=== PATIENT | male | born 1990 | race Caucasian/White ===

== ENCOUNTER 2023-09-27 17:02 | Emergency (ER) | payer OTHER, SELFPAY ==
[2023-09-27 17:04] VITALS: BP 164/124; PULSE 88; RESP 20; TEMP 36.7; O2SAT 97; BMI 25.7
--- NOTE | 2023-09-27 17:13 | INFXCTL.NOTE ---
DR CALDERON AT BEDSIDE
[2023-09-27] MEDS: FLUORESCEIN SODIUM 1MG STRIP 1 MG OP (17:25)
[2023-09-27] MEDS: ERYTHROMYCIN BASE 1 GM OINT...G. OP (17:25)
--- NOTE | 2023-09-27 17:25 | ED_ITS ---
Discharge Plan Disposition Patient Disposition: Home, Self-Care Condition: Good Prescriptions Prescriptions: New erythromycin 5 mg/gram (0.5 %) ointment 1.25 cm Eye-Right Q8H Qty: 3.5 0RF Referrals Follow up/Referrals: Provider,Referral, [Primary Care Provider] - See instructions Activity Restrictions/Add. Instructions Additional Instructions/Restrictions: Use your erythromycin ointment 4 times per day and use the polymyxin eyedrop every 4 hours during the first 24 hours, every 6 hours after the first 24 hours. Follow-up closely with ophthalmology for continued evaluation and management and return for any new or worsening symptoms including but not limited to worsening pain, swelling, changes in your vision or any other concerns arise. Clinical Impressions Clinical Impression: Corneal abrasion Instructions Patient Instructions: DI for Eye Pain Discharge ED Provider: Mara Navarro Adult HPI General Chief complaint: Eye Problems Stated complaint: Stuck by bee eye Time Seen by Provider: 09/27/23 17:10 Mode of Arrival: Ambulatory Source of Information: Patient Limitations: No Limitations Description of Symptoms (Recalled from ER Triage Doc. by RN): r eye. possible bee sting History of Present Illness HPI narrative: Patient is a 33-year-old male with no significant past medical history presenting with right eye issue. Patient [place] and was driving with his windows down when a bug flew in the window and he swatted it away. He felt some pain in his right eye and saw a bee on the steering wheel and thinks he was stung in the eye. He feels a foreign body sensation in the eye but they did attempt to rinse it at roadside with water. Denies any visual changes. He was worried there was a stinger still in his eye. Denies any contacts. Related Data Previous Rx's Medication Instructions Recorded erythromycin 5 mg/gram (0.5 %) eye 1.25 cm Eye-Right Q8H #3.5 grams 09/27/23 ointment Allergies Allergy/AdvReac Type Severity Reaction Status Date / Time No Known Allergies Allergy Verified 09/27/23 17:14 [facility] Disclaimer: The information contained in this section may have been updated after the patient was seen, as this information can be updated by other users. Social History Smoking Status: Never smoker alcohol intake: current current occupational status: employed Travel in the last 8 weeks: None ROS Obtained: Yes Systems reviewed as appropriate & no additional complaints except as documented Physical Exam General General appearance: alert and in no apparent distress Head Head exam: atraumatic and normocephalic Eye Eye exam: Present PERRL, EOMI and other (Conjunctival injection and some chemosis of the right eye with no retained foreign body or corneal abrasion appreciated, some swelling around the right eye as well but able to range of motion in all directions, no ecchymosis or abrasion and no abrasion under fluorescein staining with Shannon lamp.) Respiratory Respiratory exam: Present normal lung sounds bilaterally; Absent respiratory distress Cardiovascular Cardiovascular exam: Present regular rate and normal rhythm Neurological Exam Neurological exam: Present alert and oriented X3 Medical Decision Making Medical Records Medical records reviewed: Yes I reviewed the patient's medical records. Rashid Inquiry Pt receiving controlled substance: No Vital Signs: 09/27/23 17:04 Temperature 98.1 F Temperature Source Oral Pulse Rate [Right] 88 Respiratory Rate 20 Blood Pressure [Right Arm] 164/124 H Blood Pressure Mean [Right Arm] 137 02 Sat by Pulse Oximetry 97 Oxygen Delivery Method Room Air Medical Decision Narrative: Patient is a 33-year-old male with no significant past medical history presenting with right eye problem. Bug flew into his eye while [address], subsequent pain and retained body sensation to the right eye with right eye swelling. He does have swelling surrounding the right eye as well as chemosis of the right eye and some conjunctival injection. There is no identifiable foreign body under direct exam as well as Shannon lamp exam after fluorescein staining. Patient did have resolution of his symptoms after tetracaine and and is able to range of motion his eye in all directions. No visual changes. Concerned that he did have an injury/sting around the right eye area but again no visible abrasion or retained foreign body. Given erythromycin ointment and polymyxin eyedrops while in the emergency department and recommended how he should take these medications, will also prescribe erythromycin ointment. Discussed that he should follow-up with ophthalmology tomorrow for continued management as well as return precautions to which patient is agreeable. Discharged in stable condition. Critical Care Critical Care Time Critical Care Time: No
[2023-09-27] MEDS: NEOMYCIN-POLYMY-GRAM OPHTH SOLN 10ML BOTTLE OP (17:26)
[2023-09-27] MEDS: TETRACAINE 0.5% OPTH SOL 15ML OP (17:26)
[2023-09-27 17:43] VITALS: BP 142/99; PULSE 90; RESP 20; TEMP 36.7; O2SAT 98
== END 2023-09-27 17:44 | disposition home or self-care (01) ==
PROVIDERS: Emergency Provider Emergency Medicine
DX: S05.01XA Injury of conjunctiva and corneal abrasion without foreign body, right eye, initial encounter (principal); H02.843 Edema of right eye, unspecified eyelid; W44.8XXA Other foreign body entering into or through a natural orifice, initial encounter
CPT/HCPCS: 99283

== ENCOUNTER 2024-07-30 08:36 | Outpatient (CLI) | payer OTHER, SELFPAY ==
[2024-07-30 09:17] LABS: Basophils % 0.6 % (0.1-2.0); Eosinophils % 0.4 % (0.1-12.0); Hematocrit 36.2 % (42.0-52.0); Hemoglobin 10.9 g/dL (14.1-18.0); Lymphocytes # 1.6 K/mm3 (0.7-4.5); Lymphocytes % 30.1 % (10-50); Mean Corpuscular HGB Conc 30.1 g/dL (31.8-35.4); Mean Corpuscular Hemoglobin 20.4 pg (27.0-31.2); Mean Corpuscular Volume 67.8 fl (80-94); Mean Platelet Volume 9.1 fl (7.4-10.4); Monocytes # 0.6 K/mm3 (0.1-1.0); Monocytes % 11.2 % (1.7-9.3); Neutrophils # 3.1 K/mm3 (1.8-7.8); Neutrophils % 57.5 % (37.0-80.0); Platelet Count 227 K/mm3 (142-424); Red Blood Count 5.34 M/mm3 (4.60-6.20); Red Cell Distribution Width 18.6 % (11.5-17.5); White Blood Count 5.5 K/mm3 (4.8-10.8)
[2024-07-30 09:35] LABS: Alanine Aminotransferase 35 U/L (12-78); Albumin Level 4.8 g/dl (3.5-5.0); Albumin/Globulin Ratio 1.7 (1.1-1.8); Alkaline Phosphatase 53 U/L (38-126); Anion Gap 12.5 mEq/L (5-15); Aspartate Amino Transferase 51 U/L (17-59); Bilirubin,Total 0.2 mg/dl (0.2-1.3); Blood Urea Nitrogen 12 mg/dl (9-20); Calcium 9.6 mg/dl (8.4-10.2); Carbon Dioxide 26 mmol/L (22.0-30.0); Chloride 106 mmol/L (98-107); Estimated Glomerular Filt Rate 97 ml/min (>60); GFR (African American) 117 ML/MIN (>60); Globulin 2.8 g/dL (1.3-3.2); Glucose 93 mg/dl (74-100); Potassium 4.5 mmoL/L (3.5-5.1); Sodium 140 mmol/L (136-145); Total Protein,Serum 7.6 g/dl (6.3-8.2)
[2024-07-31 09:24] LABS: Hep B Core Ab, Total Negative (Negative); Hep B Surface Ab, Qual Reactive (.); Hepatitis B Surface Antigen Negative (Negative)
[2024-08-03 02:36] LABS: ALT (SGPT) P5P 34 IU/L (0-55); AST (SGOT) P5P 48 IU/L (0-40); Alpha 2-Macroglobulins, Qn 153 mg/dL (110-276); Apolipoprotein A-1 172 mg/dL (101-178); Bilirubin, Total 0.1 mg/dL (0.0-1.2); Cholesterol, Total 193 mg/dL (100-199); Fibrosis Score 0.05 (0.00-0.21); GGT 209 IU/L (0-65); Glucose 95 mg/dL (70-99); Haptoglobin 144 mg/dL (17-317); NASH Score 0.41 (0.00-0.25); Steatosis Score 0.53 (0.00-0.40); Triglycerides 162 mg/dL (0-149)
[2024-08-18 15:10] LABS: PDF: SCANNED IMAGE
[2024-08-18 15:12] LABS: HCV Log10 7614 logIU/mL
== END 2024-07-30 23:59 | disposition home or self-care (01) ==
LOC: LAB 08:38
PROVIDERS: Visit Provider Nurse Practitioner Family
DX: B19.20 Unspecified viral hepatitis C without hepatic coma (principal); D50.9 Iron deficiency anemia, unspecified; K62.5 Hemorrhage of anus and rectum; F10.10 Alcohol abuse, uncomplicated
CPT/HCPCS: 36415; 80053; 82172; 82247; 82465; 82947; 82977; 83010; 83883; 84450; 84460; 84478; 85025; 86704; 86706; 87340; 87522

== ENCOUNTER 2024-08-03 09:23 | Outpatient (CLI) | payer OTHER, SELFPAY ==
--- NOTE | 2024-08-03 09:25 | US_ITS ---
FINAL REPORT TECHNIQUE: Multiple transverse and longitudinal scans were performed of the right upper quadrant of the abdomen. CLINICAL HISTORY: ELEVATED LIVER ENZYMES COMPARISON: None FINDINGS: Sonographic images of the right upper quadrant were obtained. The pancreas is partially obscured. There is fatty infiltration of the liver. There is a 5 mm echogenic nonshadowing focus in the gallbladder consistent with a polyp. There is apparent gallbladder wall thickening measuring up to 5 mm. There is no evidence of biliary ductal dilatation.The common duct measures 2 mm. Limited images of the right kidney are unremarkable. IMPRESSION: 5 mm gallbladder polyp with gallbladder wall thickening. Cannot exclude some element of chronic cholecystitis. Reviewed, Interpreted and Dictated by Jay Lizarraga MD Transcribed by Keyana Teixeira Authenticated and [facility]
== END 2024-08-03 23:59 | disposition home or self-care (01) ==
LOC: RAD 09:24
PROVIDERS: Visit Provider Physician Assistant
DX: R74.8 Abnormal levels of other serum enzymes (principal)
CPT/HCPCS: 76705

== ENCOUNTER → 2024-09-08 06:46 | Outpatient (CLI) | payer OTHER, SELFPAY | LOC: SL 06:47 | PROVIDERS: PCP Physician Assistant; Visit Provider Physician Assistant | DX: G47.33 Obstructive sleep apnea (adult) (pediatric) (principal); R06.83 Snoring; I10 Essential (primary) hypertension | CPT/HCPCS: G0399 ==

== ENCOUNTER 2024-10-06 11:51 | Day surgery (SDC) | payer OTHER, SELFPAY ==
[2024-10-04 13:56] VITALS: BMI 29.8
[2024-10-06 12:19] VITALS: BP 155/94; PULSE 51; RESP 18; TEMP 36.2; O2SAT 98
--- NOTE | 2024-10-06 12:48 | EXP.HP ---
History of Present Illness *Admission Date: 10/06/24 *Reason for visit:: Iron deficiency anemia intermittent bright red rectal bleeding *History of present illness: Mr. Hawk is a 34-year-old gentleman with iron deficiency anemia and rectal bleeding who is here for diagnostic EGD and colonoscopy. The patient does report heavy alcohol use and does have chronic hepatitis C. The examination is deemed medically necessary for diagnostic EGD and colonoscopy. The patient has been seen, interviewed and examined prior to the procedure by both myself and the anesthesia provider. [facility] Disclaimer: The information contained in this section may have been updated after the patient was seen, as this information can be updated by other users. Medical History Frequent urination Sleep apnea History of COVID-19 History of gastroesophageal reflux (GERD) Hypertension Surgical History No significant past surgical history Family History Other No significant family history Social History Smoking Status: Current every day smoker alcohol intake: current substance use type: denies use current occupational status: employed Travel in the last 8 weeks?: None Review of Systems Review of Systems Review of systems (narrative): Negative *Cardiovascular Comments: Negative *Gastrointestinal Comments: Negative *Genitourinary Comments: Negative *Musculoskeletal Comments: Negative *Neurologic Comments: Negative Meds Home Medications and Allergies Home Medications ?Medication ?Instructions ?Recorded ?Confirmed ?Type amlodipine 5 mg tablet 5 mg PO DAILY 07/26/24 07/26/24 History ferrous sulfate 325 mg (65 mg 325 mg PO DAILY 07/26/24 07/26/24 History iron) tablet (FeroSul) glecaprevir 100 mg-pibrentasvir 40 3 tab PO DAILY 8 weeks #168 tabs 09/06/24 Rx mg tablet (Mavyret) New Prescriptions to Start Prescriptions: Allergies Allergy/AdvReac Type Severity Reaction Status Date / Time No Known Allergies Allergy Verified 10/04/24 13:49 Exam Data for Last 24 hours Vital signs and Labs for Last 24 Hours: Temp Pulse Resp BP Pulse Ox O2 Del Method 97.1 F L 51 L 18 155/94 H 98 Room Air 10/06/24 12:19 10/06/24 12:19 10/06/24 12:19 10/06/24 12:19 10/06/24 12:19 10/06/24 12:19 I & O for Last 24 hours: Intake & Output 10/03/24 10/04/24 10/05/24 10/06/24 23:59 23:59 23:59 23:59 Weight 220 lb *Routine HEENT Exam Head: Present normocephalic Eye: Present EOMI and PERRL ENT: Present mucous membranes moist *Routine Neck Exam Neck: Present supple *Routine Respiratory Exam Respiratory: Present CTA bilaterally *Routine Cardiovascular Exam Cardiovascular: Present RRR *Routine Abdominal Exam Abdominal: Present soft and normoactive bowel sounds; Absent tenderness *Routine Rectal Exam Rectal:: deferred *Routine Genitalia Exam Genitalia:: deferred *Routine Extremities Exam Extremities: Absent cyanosis, clubbing or edema *Routine Skin Exam Skin: Present warm; Absent rash *Routine Neurological Exam Neurological: Present alert and oriented X3 Assessment and Plan *Assessment and plan (1) Iron deficiency anemia: Status: Acute Category: Medical Code(s): D50.9 - Iron deficiency anemia, unspecified (2) Rectal bleeding: Status: Acute Category: Medical Code(s): K62.5 - Hemorrhage of anus and rectum (3) Chronic alcohol abuse: Status: Acute Category: Medical Code(s): F10.10 - Alcohol abuse, uncomplicated (4) Hepatitis C: Status: Acute Category: Medical Code(s): B19.20 - Unspecified viral hepatitis C without hepatic coma Plan A/P: 1. Iron deficiency anemia with rectal bleeding is the preprocedural diagnosis. The patient will be anesthetized/sedated using MAC sedation. The patient has been seen and examined. Cardiac and lung assessment prior to the examination is stable. Proceed with planned diagnostic EGD and colonoscopy.
[2024-10-06 12:51] VITALS: O2SAT 98
--- NOTE | 2024-10-06 12:51 | EXP.ANES.CKL ---
[facility] Disclaimer: The information contained in this section may have been updated after the patient was seen, as this information can be updated by other users. Medical History Frequent urination Sleep apnea History of COVID-19 History of gastroesophageal reflux (GERD) Hypertension Surgical History No significant past surgical history Family History Other No significant family history Social History Smoking Status: Current every day smoker alcohol intake: current substance use type: denies use current occupational status: employed Travel in the last 8 weeks?: None [facility] Anesthesia Checklist Patient Identification Patient Identification: Arm Band and Family Structural Data Admitted From: Home Planned Operative Procedure/s: colonoscopy Verified Documents: Surgical Consent and History and Physical NPO Status Verified Time NPO: 00:00 Additional verifications Patient : No Anesthesia Reactions: No Hx Blood Transfusions: No Blood Transfusion Reaction: No Cephalosporin Allergy: No Previous Colonoscopy: No Airway Assessment Mallampati Score:: Class II C-Spine Mobility Assessed: Yes TMJ Mobility Assessed: Yes Dentition: Good Dentition Neurological Assessment Level of Consciousness: Awake, Alert, Appropriate and Follows Commands Hx Seizures: No Numbness or tingling in extremities: No Anesthesia Plan Anesthesia Risk discussed: Yes ASA Class: II Anesthesia Type: MAC Preoperative Comments Pre-Operative Comments: Being treated for Hep C.
--- NOTE | 2024-10-06 13:10 | P.PCN_ITS ---
[facility] Procedure Note Date: 10/06/24 Time: 13:17 Procedure Note:: Upper Endoscopy Procedure Report: Esophagogastroduodenoscopy with cold biopsies Endoscopost: Henri Monaco II, MD Referring Physician: Gina Alarcon PA-C, [address] [place] [address] Date of Procedure: October 06, 2024 Equipment: Olympus GIF 190 standard upper endoscope Sedation: MAC sedation Indications: Mr. Louise is a 34-year-old gentleman with iron deficiency anemia and bright red blood per rectum. He also reports bile and food emesis/regurgitation in the morning. He does have some mild gassiness, bloating and intermittent mild belching. He is on omeprazole for reflux. He also reports chronically loose stools. He reports no weight loss but has had weight gain. He has had no hematemesis. He does state that he will have bright red blood dripping into the commode that may be 3 to 4 days in a row and then he states that this will go away and then return weeks later. The patient recently had a hemoglobin 11.6 with low iron (ferritin 6, serum iron 20 and iron saturation 4%). The patient has been using a lot of ibuprofen. He has never had an EGD or colonoscopy. He does not know his family history. The patient does drink at least 12 beers daily. The patient has started on his first week of antiviral therapy for hepatitis C. He is not taking anything for alcohol use disorder. Procedure: Prior to the procedure, a history and physical exam was performed, and patient's medications and allergies were reviewed. The risks, benefits and alternatives of the sedation and procedure were discussed with the patient. All questions were answered and informed consent was obtained. The patient was brought to the procedure room. Patient identification and proposed procedure were verified by the physician and the nurse. The patient was placed in a left lateral decubitus position and the scope was passed under direct vision. Throughout the procedure, the patient's blood pressure, pulse, and oxygen saturations were monitored continuously. The upper GI endoscopy was accomplished without difficulty. The patient tolerated the procedure well. Findings: The scope was passed directly into the upper esophagus and advanced to the third portion of the fourth portion of duodenum and proximal jejunum. Cold biopsies were taken x 4 for disaccharidase assay. The proximal jejunum, post bulbar duodenum and duodenal bulb were normal with normal mucosa and conniventes. Cold biopsies were taken from the first portion of the duodenum to rule out celiac disease. The scope was withdrawn through a normal duodenal bulb and pylorus into the stomach. There was mild linear reactive gastropathy of the antrum. The body and fundus of the stomach were normal. Upon retroflexion there was a small 1 to 2 cm hiatal hernia. Cold biopsies were taken from the antrum and lesser curvature. The scope was then withdrawn into the esophagus. There was no evidence of reflux esophagitis or Pena's. The remainder of the esophageal mucosa was normal. Impression: 1. Nonerosive GERD with very small sliding 1 to 2 cm hiatal hernia 2. Mild linear reactive gastropathy of antrum Plan: I will follow-up the biopsies and disaccharidase assay. There was no clear source for the patient's iron deficiency or bleeding. I will proceed with colonoscopy. I have discussed importance of staying compliant with antiviral hepatitis C therapy. I would also consider treatment for alcohol use disorder (pegylated methylnaltrexone). I will discuss the findings with the patient and family.
--- NOTE | 2024-10-06 13:22 | P.PCN_ITS ---
[facility] Procedure Note Date: 10/06/24 Time: 13:32 Procedure Note:: Colonoscopy Procedure Report: Colonoscopy with cold biopsies and hemorrhoid band ligation Endoscopist: Henri Monaco II, MD Referring physician: Gina Alarcon PA-C, [address] [place] [address] Date of Procedure: October 06, 2024 Equipment: Olympus 190 variable stiffness pediatric colonoscope Sedation: MAC sedation Indication: Mr. Louise is a 34-year-old gentleman here for diagnostic colonoscopy. The patient has iron deficiency anemia and bright red blood per rectum. He also reports bile and food emesis/regurgitation in the morning. He does have some mild gassiness, bloating and intermittent mild belching. He is on omeprazole for reflux. He also reports chronically loose stools. He reports no weight loss but has had weight gain. He has had no hematemesis. He does state that he will have bright red blood dripping into the commode that may be 3 to 4 days in a row and then he states that this will go away and then return weeks later. The patient recently had a hemoglobin 11.6 with low iron (ferritin 6, serum iron 20 and iron saturation 4%). The patient has been using a lot of ibuprofen. He has never had an EGD or colonoscopy. He does not know his family history. The patient does drink at least 12 beers daily. The patient has started on his first week of antiviral therapy for hepatitis C. He is not taking anything for alcohol use disorder. Procedure: Prior to the procedure, a history and physical exam was performed, and patient's medications and allergies were reviewed. The risks, benefits and alternatives of the sedation and procedure were discussed with the patient. All questions were answered and informed consent was obtained. The patient was brought to the procedure room. Patient identification and proposed procedure were verified by the physician and the nurse. The patient was placed in a left lateral decubitus position and the scope was passed under direct vision. Throughout the procedure, the patient's blood pressure, pulse, and oxygen saturations were mo nitored continuously. The colonoscopy was accomplished without difficulty. The patient tolerated the procedure well. Findings: On digital rectal examination there was normal rectal tone. There were no external hemorrhoids. The colonoscope was introduced through the anal canal to the rectum and advanced to the cecum. The ileocecal valve and appendiceal orifice were identified. The scope was advanced a short distance into the ileum which appeared grossly normal. The scope was then withdrawn into the colon. The cecum, ascending, transverse, descending, sigmoid and rectum were grossly normal. There were no mucosal abnormalities identified. Random cold biopsies were taken from the right colon to rule out microscopic colitis. Upon retroflexion within the rectum there were grade 2-3 internal hemorrhoids. 3 columns of hemorrhoids were banded using 4 bands with excellent ligation effect. The preparation was excellent throughout with [place] Preparation Score of 9. The cecal time was 12 minutes. Impression: 1. Normal colonoscopy with intubation of the terminal ileum 2. Grade 2-3 internal hemorrhoids status post band ligation x 4 Plan: I would strongly encourage psyllium bulking fiber supplementation on a long-term daily maintenance basis. This will help with healing and prevention of hemorrhoids and prevent recurrence. He will continue Mavyret daily to completion. Fortunately, fibrosis panel shows no hepatic fibrosis. It will be important to achieve alcohol abstinence for his alcohol use disorder and would consider treatment with pegylated methylnaltrexone. I will discuss the findings with the patient and family and follow-up the biopsies.
[2024-10-06 13:44] VITALS: BP 134/76; PULSE 78; RESP 20; O2SAT 95
[2024-10-06 13:54] VITALS: BP 131/70; PULSE 74; RESP 20; O2SAT 98
[2024-10-06 14:04] VITALS: BP 129/79; PULSE 71; RESP 20; O2SAT 98
[2024-10-06 14:14] VITALS: BP 134/88; PULSE 77; RESP 20; TEMP 36.4; O2SAT 95
[2024-10-06] MEDS: HYDROCODONE/APAP 5/325 MG TABLET 1 TAB PO (14:21)
[2024-10-11 16:16] LABS: Disclaimer Notes (.); Interpretation Notes (.); Lactase 43.72 (>/= 14.0); Maltase 365.48 (>/= 110.0); Palatinase 24.98 (>/= 8.5); Reference Notes (.); Sucrase 112.01 (>/= 25.0)
== END 2024-10-06 14:15 | disposition home or self-care (01) ==
PROVIDERS: PCP Physician Assistant; Visit Provider Internal Medicine Gastroenterology
PROC: 0DJ08ZZ Inspection of Upper Intestinal Tract, Via Natural or Artificial Opening Endoscopic (ICD-10-PCS; CPT 45378; principal; 2024-10-06 13:30)
DX: D50.9 Iron deficiency anemia, unspecified (principal); K62.5 Hemorrhage of anus and rectum; F10.10 Alcohol abuse, uncomplicated; B19.20 Unspecified viral hepatitis C without hepatic coma; R11.10 Vomiting, unspecified; R14.0 Abdominal distension (gaseous); R14.2 Eructation; R19.7 Diarrhea, unspecified; R63.5 Abnormal weight gain; K21.9 Gastro-esophageal reflux disease without esophagitis; K44.9 Diaphragmatic hernia without obstruction or gangrene; K31.9 Disease of stomach and duodenum, unspecified; K64.9 Unspecified hemorrhoids
CPT/HCPCS: 43239; 45380; 45398; 82657; C1889; J2704

== ENCOUNTER 2025-01-03 15:41 | Outpatient (CLI) | payer OTHER, SELFPAY ==
--- OUTSIDE RECORDS SUMMARY | 2025-01-03 15:43 | XMS_ITS | Clinical Summary ---
Author Organization [facility] Address [address] [place] [address] Care Team Providers Care Strip Polisher Name Role Phone Pcp, No Primary Care Provider Unavailabl e Suze Salcedo DMD Unavailable [phone] Dung Virk Unavailable Unavailable Allergies No known active allergies Medications omeprazole (PriLOSEC) [address] capsule Take 2 capsules (20 mg) by mouth daily. Do not crush or chew. Active amLODIPine (Norvasc) 10 MG tablet Take 1 tablet by mouth in the morning. Active ferrous sulfate 325 (65 Fe) MG tablet Take 1 tablet by mouth daily with breakfast. Active cyanocobalamin 100 MCG tablet Take 1 tablet by mouth daily. Active Active Problems No known active problems Encounters Date Type Department Care Team Description 12/05/2024 Telephone [facility] [address] [place] [address] Dung Virk 11/28/2024 Telephone [facility] [address] [place] [id number] Dung Virk 11/28/2024 Telephone [facility] [address] [place] [address] Dung Virk from Last 3 Months Social History Tobacco Use Types Packs/Day Years Used Date Smoking Tobacco: Every Day Cigarettes Started: 2009 Smokeless Tobacco: Never Tobacco Cessation:Ready to Q uit: No; Counseling Given: Not Answered Alcohol Use Standard Drinks/Week Comments Yes 21 (1 standard drink = 0.6 oz pure alcohol) drinks several beers daily (about 4 a day) Sex and Gender Information Value Date Recorded Sex Assigned at Not on file Legal Sex Male 7:59 PM EDT Gender Identity Not on file Sexual Orientation Not on file Last Filed Vital Signs Vital Sign Reading Time Taken Comments Blood Pressure 145/94 08/18/2024 9:02 AM EDT Pulse 64 08/18/2024 9:02 AM EDT Temperature - - Respiratory Rate - - Oxygen Saturation - - Inhaled Oxygen Concentration - - Weight - - Height - - Body Mass Index - - Plan of Treatment Upcoming Encounters Date Type Department Care Team (Late st Contact Info) Description 01/18/2025 9:00 AM EDT Office Visit [facility] [address] [place] [address] Dung Virk Health Maintenance Due Date Last Done Comments [facility]-Depression Screening 1989 [facility]-HIV Screening 1989 [facility]-Hepatitis C Screening 1989 [facility]-Infant/Child/Adol SDOH Screenings 1989 [id number] Vaccine (#1) 1994 [facility]-Varicella Vaccines (1 of 2 - 13+ 2-dose series) 2002 [facility]- SDOH Screenings 08/20/2007 [facility]-Adult SDOH Screenings 08/20/2007 [facility]-Hepatitis B Vaccines (1 of 3 - 19+ 3-dose series) 2008 [facility]-Pneumococcal Vaccine: Pediatrics (0 to 5 Years) and At-Risk Patients (6 to 49 Years) (1 of 2 - PCV) 2008 HPV Vaccines (1 - 3-dose SCDM series) 2016 Dental Prophylaxis 03/13/2021 09/10/2020, 02/27/2020 Dental Oral Exam 12/22/2024 06/23/2024, 02/2020, 02/20/2020, Additional history exists [facility]-Influenza Vaccine (#1) 2025 07/19/2024 Dental X-Ray: Bitewings 06/24/2025 06/23/2024, 01/24 Dental X-Ray: Full Mouth 06/24/2027 025, 05/03/2020, 01/25/2020, Additional history exists [facility]-DTaP,Tdap,and Td Vaccines (2 - Td or Tdap) 07/19/2034 07/19/2024 [facility]-Zoster Vaccines (1 of 2) 08/20/2039 [facility]-HIB Vaccines Aged Out No longer e ligible based on patient's age to complete this topic [facility]-Hepatitis A Vaccines Aged Out No longer eligible based on patient's age to complete this topic [facility]-IPV Vaccines Aged Out No longer e ligible based on patient's age to complete this topic [facility]-Rotavirus Vaccines Aged Out No lo nger eligible based on patient's age to complete this topic Procedures Procedure Name Priority Date/Time Associated Diagnosis Comments INTRAORAL - COMPLETE SERIES OF RADIOGRAPHIC IMAGES Routine 06/23/2024 1:30 PM EST Open fracture of tooth, initial encounter COMPREHENSIVE ORAL EVALUATION - NEW OR ESTABLISHED PATIENT Routine 06/23/2024 1:30 PM EST Open fracture of tooth, initial encounter PROPHYLAXIS - ADULT Routine 09/10/2020 1 2:00 AM EDT from Last 3 Months or Most Recently Relevant to Health Maintenance Insurance [employer] Care Teams Strip Polisher Relationship Specialty Start Date End Date Pcp, No [address] [place] [address] PCP - General Family Medicine 02/18/24 Suze Salcedo DMD [address] [address] Dentist 06/23/24 Dung Virk Dental Student Dental Site Physician 06/23/24
--- OUTSIDE RECORDS SUMMARY | 2025-01-03 15:43 | XMS_ITS | Encounter Summary ---
Author Organization [facility] Address [address] [place] [address] Care Team Providers Care Snuff Packing Machine Operator Name Role Phone Katherine Moore DMD Unavailable [phone] Kwesi Alaniz Unavailable Unavailable Delmer Jimenez DMD Unavailable [phone] Pcp, No Primary Care Provider UnavailBrigitte Morrissey Unavailable Unavailable Suze Salcedo DMD Unavailable [phone] Dung Virk Unavailable Unavailable Encounter Details Date Type Department Care Team (Late st Contact Info) Description 02/20/2020 Abstract [facility] [address] [place] [address] Dental, Provider, DDS [address] [place], [place] [id number] Social History Tobacco Use Types Packs/Day Years Used Date Smoking Tobacco: Never Assessed Sex and Gender Information Value Date Recorded Sex Assigned at Not on file Legal Sex Male 7:59 PM EDT Gender Identity Not on file Sexual Orientation Not on file documented as of this encounter Plan of Treatment Upcoming Encounters Date Type Department Care Team (Late st Contact Info) Description 01/18/2025 9:00 AM EDT Office Visit [facility] [address] [place] [address] Dung Virk documented as of this encounter Visit Diagnoses Not on filedocumented in this encounter Care Teams Snuff Packing Machine Operator Relationship Specialty Start Date End Date Pcp, No [address] [place] [address] PCP - General Family Medicine 02/18/24 Katherine Moore DMD [address] [place] [address] Dentist Dental Travel Journalist 11/08/20 Kwesi Alaniz [facility] Dental Student Dental Travel Journalist 11/08/20 09/11/22 Delmer Jimenez, DMD [address] [place] [address] Dentist 02/04/22 06/22/24 Brigitte Albarran Dental Student Dental Travel Journalist 06/23/24 06/23/24 Suze Salcedo, DMD [address] [place] [address] Dentist 06/23/24 Dung Virk Dental Student Dental Travel Journalist 06/23/24 documented as of this encounter
--- OUTSIDE RECORDS SUMMARY | 2025-01-03 15:43 | XMS_ITS | Encounter Summary ---
Author Organization [facility] Address [address] [place] [address] Care Team Providers Care Podiatry Teacher Name Role Phone Pcp, No Primary Care Provider Unavailabl e Suze Salcedo DMD Unavailable [phone] Dung Virk Unavailable Unavailable Encounter Details Date Type Department Care Team (Late Contact Info) Description 12/05/2024 Telephone [facility] [address] [place] [address] Dung Virk Social History Tobacco Use Types Packs/Day Years Used Date Smoking Tobacco: Every Day Cigarettes Started: 2009 Smokeless Tobacco: Never Alcohol Use Standard Drinks/Week Comments Yes 20 (1 standard drink = 0.6 oz pure alcohol) drinks several beers daily (about 4 a day) Sex and Gender Information Value Date Recorded Sex Assigned at Not on file Legal Sex Male 7:59 PM EDT Gender Identity Not on file Sexual Orientation Not on file documented as of this encounter Miscellaneous Notes * Telephone Encounter - Herlinda Whitaker - 12/05/2024 10:45 AM EDT . documented in this encounter Plan of Treatment Upcoming Encounters Date Type Department Care Team (Late Contact Info) Description 01/18/2025 9:00 AM EDT Office Visit [facility] [address] [place] [address] Dung Virk documented as of this encounter Visit Diagnoses Not on filedocumented in this encounter Additional Health Concerns Assessment Noted Time A Body Mass Index follow-up plan has been documented for the patient 08/18/2024 11:22 AM EDT documented as of this encounter Care Teams Podiatry Teacher Relationship Specialty Start Date End Date Pcp, No [address] [place] [address] PCP - General Family Medicine 02/18/24 Suze Salcedo, BEN [address] [address] Dentist 06/23/24 Dung Virk Dental Student Dental Cow Tender 06/23/24 documented as of this encounter
--- OUTSIDE RECORDS SUMMARY | 2025-01-03 15:43 | XMS_ITS | Encounter Summary ---
Author Organization [facility] Address [address] [place] [address] Care Team Providers Care Health Services Director Name Role Phone Pcp, No Primary Care Provider Unavailabl e Suze Salcedo DMD Unavailable [phone] Dung Virk Unavailable Unavailable Encounter Details Date Type Department Care Team (Late Contact Info) Description 11/28/2024 Telephone [facility] [address] [place] [address] Dung Virk Social History Tobacco [...] encounter Miscellaneous Notes * Telephone Encounter - Maria G Monroy I - 11/28/2024 3:48 PM EDT . documented in this encounter Plan of Treatment Upcoming Encounters Date Type Department Care Team (Late Contact Info) Description 01/18/2025 9:00 AM EDT Office Visit [facility] [address] [place] [address] Dung Virk documented as of this encounter Visit Diagnoses Not on filedocumented in this encounter Additional Health Concerns Assessment Noted Time A Body Mass Index follow-up plan has been documented for the patient 08/18/2024 11:22 AM EDT documented as of this encounter Care Teams Health Services Director Relationship Specialty Start Date End Date Pcp, No [address] [place] [address] PCP - General Family Medicine 02/18/24 Suze Salcedo, BEN [address] [address] Dentist 06/23/24 Dung Virk Dental Student Dental Cylinder Head Assembler 06/23/24 documented as of this encounter
--- OUTSIDE RECORDS SUMMARY | 2025-01-03 15:43 | XMS_ITS | Encounter Summary ---
Author Organization [facility] Address [address] [place] [address] Care Team Providers Care Supervisor Color Paste Mixing Name Role Phone Pcp, No Primary Care Provider Unavailabl e Suze Salcedo DMD Unavailable [phone] Dung Virk Unavailable Unavailable Encounter Details Date Type Department Care Team (Late Contact Info) Description 11/28/2024 Telephone [facility] [address] [place] [address] Dung Virk Social History Tobacco [...] encounter Miscellaneous Notes * Telephone Encounter - Ame Stephens - 11/28/2024 3:56 PM EDT . documented in this encounter Plan of Treatment Upcoming Encounters Date Type Department Care Team (Late Contact Info) Description 01/18/2025 9:00 AM EDT Office Visit [facility] [address] [place] [address] Dung Virk documented as of this encounter Visit Diagnoses Not on filedocumented in this encounter Additional Health Concerns Assessment Noted Time A Body Mass Index follow-up plan has been documented for the patient 08/18/2024 11:22 AM EDT documented as of this encounter Care Teams Supervisor Color Paste Mixing Relationship Specialty Start Date End Date Pcp, No [address] [place] [address] PCP - General Family Medicine 02/18/24 Suze Salcedo, BEN [address] [address] Dentist 06/23/24 Dung Virk Dental Student Dental Screen Tender 06/23/24 documented as of this encounter
[2025-01-03 19:46] LABS: Albumin Level 4.6 g/dl (3.5-5.0); Chloride 105 mmol/L (98-107); Sodium 139 mmol/L (136-145)
[2025-01-03 19:47] LABS: Potassium 4.3 mmoL/L (3.5-5.1)
[2025-01-03 19:49] LABS: Alanine Aminotransferase 24 U/L (12-78); Anion Gap 13.3 mEq/L (5-15); Aspartate Amino Transferase 49 U/L (17-59); Blood Urea Nitrogen 6 mg/dl (9-20); Carbon Dioxide 25 mmol/L (22.0-30.0); Creatinine,Serum 0.80 mg/dl (0.66-1.25); Estimated Glomerular Filt Rate 110 ml/min (>60); GFR (African American) 133 ML/MIN (>60)
[2025-01-03 19:50] LABS: Albumin/Globulin Ratio 1.5 (1.1-1.8); Alkaline Phosphatase 55 U/L (38-126); Bilirubin,Total 0.5 mg/dl (0.2-1.3); Calcium 9.4 mg/dl (8.4-10.2); Globulin 3.1 g/dL (1.3-3.2); Glucose 94 mg/dl (74-100); Total Protein,Serum 7.7 g/dl (6.3-8.2)
== END 2025-01-03 23:59 | disposition home or self-care (01) ==
LOC: LAB 15:42
PROVIDERS: PCP Internal Medicine Adolescent Medicine; Visit Provider Internal Medicine Gastroenterology
DX: B19.20 Unspecified viral hepatitis C without hepatic coma (principal); F10.10 Alcohol abuse, uncomplicated
CPT/HCPCS: 36415; 80053; 87522

== ENCOUNTER 2025-01-10 10:19 | Outpatient (CLI) | payer OTHER, SELFPAY ==
--- OUTSIDE RECORDS SUMMARY | 2025-01-10 10:22 | XMS_ITS | Encounter Summary ---
Author Organization [facility] Address [address] [place] [address] Care Team Providers Care Entry Level Account Representative Name Role Phone Katherine Moore DMD Unavailable [phone] Kwesi Alaniz Unavailable Unavailable Delmer Jimenez DMD Unavailable [phone] Pcp, No Primary Care Provider UnavailBrigitte Morrissey Unavailable Unavailable Suze Salcedo DMD Unavailable [phone] Dung Virk Unavailable Unavailable Encounter Details Date Type Department Care Team (Late st Contact Info) Description 02/20/2020 [facility] [address] [place] [phone] Dental, Provider, DDS [address] [place], [place] [id number] Social History Tobacco Use Types Packs/Day Years [...] Office Visit [facility] [address] [place] [address] Dung Virk documented as of this encounter Visit Diagnoses Not on filedocumented in this encounter Care Teams Entry Level Account Representative Relationship Specialty Start Date End Date Pcp, No [address] [place] [address] PCP - General Family Medicine 02/18/24 Katherine Moore DMD [address] [place] [address] Dentist Dental Mail Clerk 11/08/20 Kwesi Alaniz [facility] Dental Student Dental Mail Clerk 11/08/20 09/11/22 Delmer Jimenez, DMD [address] [place] [address] Dentist 02/04/22 06/22/24 Brigitte Albarran Dental Student Dental Mail Clerk 06/23/24 06/23/24 Suze Salcedo, DMD [address] [place] [address] Dentist 06/23/24 Dung Virk Dental Student Dental Mail Clerk 06/23/24 documented as of this encounter
--- OUTSIDE RECORDS SUMMARY | 2025-01-10 10:22 | XMS_ITS | Clinical Summary ---
Author Organization [facility] Address [address] [place] [address] Care Team Providers Care Pipe Fitter Name Role Phone Pcp, No Primary Care Provider Unavailabl e Suze Salcedo DMD Unavailable [phone] Dung Virk Unavailable Unavailable Allergies No known [...] 12/05/2024 Telephone [facility] [address] [place] [address] Dung Virk 11/28/2024 Telephone [facility] [address] [place] [address] Dung Virk 11/28/2024 Telephone [facility] [address] [place] [address] Dung Virk from Last 3 [...] Office Visit [facility] [address] [place] [address] Dung Virk Health Maintenance Due Date Last Done Comments [facility]-Depression Screening 1989 [facility]-HIV Screening 1989 [facility]-Hepatitis C Screening 1989 [facility]-Infant/Child/Adol SDOH Screenings 1989 [id number] Vaccine (#1) 1994 [facility]-Varicella Vaccines (1 of [...] Most Recently Relevant to Health Maintenance Insurance [address] [id number] [employer] [employer] [facility] Care Teams Pipe Fitter Relationship Specialty Start Date End Date Pcp, No [address] [place] [address] PCP - General Family Medicine 02/18/24 Suze Salcedo DMD [address] [address] Dentist 06/23/24 Dung Virk Dental Student Dental Tree Feller Operator 06/23/24
--- OUTSIDE RECORDS SUMMARY | 2025-01-10 10:22 | XMS_ITS | Encounter Summary ---
Author Organization [facility] Address [address] [place] [address] Care Team Providers Care Consumer Safety Officer Name Role Phone Pcp, No Primary Care Provider Unavailabl e Suze Salcedo DMD Unavailable [phone] Dung Virk Unavailable Unavailable Encounter Details Date Type Department Care Team (Late Contact Info) Description 12/05/2024 Telephone [facility] [address] [place] [address] Dung Virk Social History Tobacco [...] Office Visit [facility] [address] [place] [address] Dung Virk documented as of this encounter Visit Diagnoses Not on filedocumented in this encounter Additional Health Concerns Assessment Noted Time A Body Mass Index follow-up plan has been documented for the patient 08/18/2024 11:22 AM EDT documented as of this encounter Care Teams Consumer Safety Officer Relationship Specialty Start Date End Date Pcp, No [address] [place] [address] PCP - General Family Medicine 02/18/24 Suze Salcedo, BEN [address] [address] Dentist 06/23/24 Dung Virk Dental Student Dental Injection Molding Machine Setter 06/23/24 documented as of this encounter
--- OUTSIDE RECORDS SUMMARY | 2025-01-10 10:22 | XMS_ITS | Encounter Summary ---
Author Organization [facility] Address [address] [place] [address] Care Team Providers Care Water Hauler Name Role Phone Pcp, No Primary Care Provider Unavailabl e Suze Salcedo DMD Unavailable [phone] Dung Virk Unavailable Unavailable Encounter Details Date Type Department Care Team (Late Contact Info) Description 11/28/2024 Telephone [facility] [address] [place] [address] Dung Virk Social History Tobacco [...] Office Visit [facility] [address] [place] [address] Dung Virk documented as of this encounter Visit Diagnoses Not on filedocumented in this encounter Additional Health Concerns Assessment Noted Time A Body Mass Index follow-up plan has been documented for the patient 08/18/2024 11:22 AM EDT documented as of this encounter Care Teams Water Hauler Relationship Specialty Start Date End Date Pcp, No [address] [place] [address] PCP - General Family Medicine 02/18/24 Suze Salcedo, BEN [address] [address] Dentist 06/23/24 Dung Virk Dental Student Dental Communication Engineer 06/23/24 documented as of this encounter
--- OUTSIDE RECORDS SUMMARY | 2025-01-10 10:22 | XMS_ITS | Encounter Summary ---
Author Organization [facility] Address [address] [place] [address] Care Team Providers Care Sash Repairer Name Role Phone Pcp, No Primary Care Provider Unavailabl e Suze Salcedo DMD Unavailable [phone] Dung Virk Unavailable Unavailable Encounter Details Date Type Department Care Team (Late Contact Info) Description 11/28/2024 Telephone [facility] [address] [place] [address] Dung Virk Social History Tobacco [...] Office Visit [facility] [address] [place] [address] Dung Virk documented as of this encounter Visit Diagnoses Not on filedocumented in this encounter Additional Health Concerns Assessment Noted Time A Body Mass Index follow-up plan has been documented for the patient 08/18/2024 11:22 AM EDT documented as of this encounter Care Teams Sash Repairer Relationship Specialty Start Date End Date Pcp, No [address] [place] [address] PCP - General Family Medicine 02/18/24 Suze Salcedo, BEN [address] [address] Dentist 06/23/24 Dung Virk Dental Student Dental Dip Stand Loader 06/23/24 documented as of this encounter
[2025-01-11 09:09] LABS: Adenovirus F 40/41, stool Not Detected (NotDetected); Clostridium Difficile A/B, PCR Not Detected (NotDetected); Cyclospora Cayetanesis Not Detected (NotDetected); Plesimonas Shigalloides, PCR Not Detected (NotDetected); Salmonella, PCR Detected (NotDetected); Shiga-like toxin E coli Not Detected (NotDetected); Shigella Enterovasive E coli Not Detected (NotDetected); Vibrio, PCR Not Detected (NotDetected); Yersinia Entercolitica, PCR Not Detected (NotDetected)
[2025-01-12 08:13] LABS: Pancreatic Elastase, Fecal >800 (>200)
== END 2025-01-10 23:59 | disposition home or self-care (01) ==
LOC: LAB.DROPOF 10:20
PROVIDERS: PCP Internal Medicine Adolescent Medicine; Visit Provider Internal Medicine Gastroenterology
DX: R19.7 Diarrhea, unspecified (principal); R14.0 Abdominal distension (gaseous); R19.5 Other fecal abnormalities
CPT/HCPCS: 82653; 87507

== ENCOUNTER 2025-03-07 10:02 | Outpatient (CLI) | payer OTHER, SELFPAY ==
--- OUTSIDE RECORDS SUMMARY | 2025-01-18 09:00 | XMS_ITS | Encounter Summary ---
Author Organization [facility] Address [address] [place] [address] Care Team Providers Care Plugman Name Role Phone Pcp, No Primary Care Provider Unavailabl e Suze Salcedo DMD Unavailable [phone] Dung Virk Unavailable Unavailable Encounter Details Date Type Department Care Team ([facility] st Contact Info) Description 01/18/2025 9:00 AM EDT Office Visit [facility] [address] [place] [address] Dung Virk Full coverage crown needed for root canal-treated tooth (Primary Dx) Social History Tobacco Use Types Packs/Day Years [...] on file documented as of this encounter Last Filed Vital Signs Vital Sign Reading Time Taken Comments Blood Pressure 132/93 01/18/2025 9:26 AM EDT Pulse 65 01/18/2025 9:26 AM EDT Temperature - - Respiratory Rate - - Oxygen Saturation - - Inhaled Oxygen Concentration - - Weight - - Height - - Body Mass Index - - documented in this encounter Miscellaneous Notes * Progress Notes - Dung Virk - 01/18/2025 9:00 AM EDT SHAPED Note (S) Section: Comprehensive Care Coverage: Dr. Salcedo (H) Health: No Changes to History Vitals: 01/18/25 0926 BP: (!) 132/93 Pulse: 65 (A) Assessment: No chief complaint on file. (P/E) Planned and Executed Treatment: Obtained crown consent. PVS triple tray used to fabricate mould temporary crown. Delivered 1/2 of 2% Lidocaine w/1:100,000 Epi via Infiltration. Isolation type -[employer]air[employer] assistant [employer] and Isovac utilized. Removed all previous restorations and decay. Etched and bonded with 38% Phosphoric acid etch and Adhese [place]. Built up tooth using CompCore. Short prep for E-max on #19 with appropriate reduction. Smoothed and finished final prep. Temp made from BisAcryl in shade A2 and cemented with TempBond. Removed excess cement. Checked margins and occlusion. Pt pleased w/today's appt. (D) Disposition: Pt to return for #18-MO & #19 final impression and margin refining. Cosigned by Suze Salcedo DMD at 01/20/2025 11:38 AM EDT Associated attestation - Suze Salcedo DMD - 01/20/2025 11:38 AM EDT I was present with the dental student for the service. I personally examined the patient, authorized the procedures that were performed, and evaluated the performance of the procedure after it was completed. I have verified all of the dental student???s documentation for this encounter. documented in this encounter Plan of Treatment Upcoming Encounters Date Type Department Care Team (Late st Contact Info) Description 03/15/2025 9:00 AM EDT Office Visit [facility] [address] [place] [address] Dung Virk documented as of this encounter Procedures Procedure Name Priority Date/Time Associated Diagnosis Comments 19 CROWN - PORCELAIN/CERAMIC IN PROCESS Routine 01/18/2025 9:00 AM EDT Full coverage crown needed for root canal-treated tooth 19 O CORE BUILDUP, INCLUDING ANY PINS WHEN REQUIRED Routine 01/18/2025 9:00 AM EDT Full coverage crown needed for root canal-treated tooth documented in this encounter Visit Diagnoses Diagnosis Full coverage crown needed for root canal-treated tooth- Primary documented in this encounter Additional Health Concerns Assessment Noted Time A Body Mass Index follow-up plan has been documented for the patient 08/18/2024 11:22 AM EDT documented as of this encounter Care Teams Plugman Relationship Specialty Start Date End Date Pcp, No [address] [place] [address] PCP - General Family Medicine 02/18/24 Suze Salcedo, DMD [address] [address] Dentist 06/23/24 Dung Virk Dental Student Dental Sales Operations Associate 06/23/24 documented as of this encounter
--- OUTSIDE RECORDS SUMMARY | 2025-03-07 10:06 | XMS_ITS | Encounter Summary ---
Author Organization [facility] Address [address] [place] [address] Care Team Providers Care Shopper Insights Manager Name Role Phone Pcp, No Primary Care Provider Unavailabl e Suze Salcedo DMD Unavailable [phone] Dung Virk Unavailable Unavailable Encounter Details Date Type Department Care Team (Late Contact Info) Description 02/09/2025 Telephone [facility] [address] [place] [address] Dung Virk Social History Tobacco [...] encounter Miscellaneous Notes * Telephone Encounter - Gale Dueñas - 02/09/2025 11:11 AM EDT . documented in this encounter Plan of Treatment Upcoming Encounters Date Type Department Care Team (Late Contact Info) Description 03/15/2025 9:00 AM EDT Office Visit [facility] [address] [place] [address] Dung Virk documented as of this encounter Visit Diagnoses Not on filedocumented in this encounter Additional Health Concerns Assessment Noted Time A Body Mass Index follow-up plan has been documented for the patient 08/18/2024 11:22 AM EDT documented as of this encounter Care Teams Shopper Insights Manager Relationship Specialty Start Date End Date Pcp, No [address] [place] [address] PCP - General Family Medicine 02/18/24 Suze Salcedo, DMD [address] [phone] Dentist 06/23/24 Dung Virk Dental Student Dental Non Profit Job Titles 06/23/24 documented as of this encounter
--- OUTSIDE RECORDS SUMMARY | 2025-03-07 10:06 | XMS_ITS | Clinical Summary ---
Author Organization [facility] Address [address] [place] [address] Care Team Providers Care Global Chief Experience Officer Name Role Phone Pcp, No Primary Care Provider Unavailabl e Suze Salcedo DMD Unavailable [phone] Dung Virk Unavailable Unavailable Allergies No known [...] Encounters Date Type Department Care Team Description 02/09/2025 Telephone [facility] [address] [place] [address] Dung Virk 01/18/2025 9:00 AM EDT Office Visit [facility] [address] [place] [address] Dung Virk Full coverage crown needed for root canal-treated tooth (Primary Dx) 01/18/2025 Travel 12/05/2024 Telephone [facility] Student [facility] [address] [place] [address] Dung Virk from Last 3 [...] EDT Office Visit [facility] [address] [place] [address] Dung Virk Health Maintenance Due Date Last Done Comments [facility]-Depression Screening 1989 [facility]-HIV Screening 1989 [facility]-Hepatitis C Screening 1989 [facility]-Infant/Child/Adol SDOH Screenings 1989 [id number] Vaccine (#1) 1994 [facility]-Varicella Vaccines (1 of [...] Name Priority Date/Time Associated Diagnosis Comments 19 O CORE BUILDUP, INCLUDING ANY PINS WHEN REQUIRED Routine 01/18/2025 9:00 AM EDT Full coverage crown needed for root canal-treated tooth 19 CROWN - PORCELAIN/CERAMIC IN PROCESS Routine 01/18/2025 9:00 AM EDT Full coverage crown needed for root canal-treated tooth INTRAORAL - COMPLETE SERIES OF RADIOGRAPHIC IMAGES Routine 06/23/2024 1:30 PM EST Open fracture of tooth, initial encounter COMPREHENSIVE ORAL EVALUATION - NEW OR ESTABLISHED PATIENT Routine 06/23/2024 1:30 PM EST Open fracture of tooth, initial encounter PROPHYLAXIS - ADULT Routine 09/10/2020 1 2:00 AM EDT from Last 3 Months or Most Recently Relevant to Health Maintenance Insurance [place] [id number] [facility] [place] Medicaid Dental Care Teams Global Chief Experience Officer Relationship Specialty Start Date End Date Pcp, No [address] [place] [address] PCP - General Family Medicine 02/18/24 Suze Salcedo, DMD [address] [address] Dentist 06/23/24 Dung Virk Dental Student Dental Mortgage Loan Funder 06/23/24
--- OUTSIDE RECORDS SUMMARY | 2025-03-07 10:06 | XMS_ITS | Encounter Summary ---
Author Organization [facility] Address [address] [place] [id number] Care Team Providers Care Barrel Rifler Name Role Phone Pcp, No Primary Care Provider Unavailabl e Suze Salcedo DMD Unavailable [phone] Dung Virk Unavailable Unavailable Encounter Details Date Type Department Care Team (Latest Contact Info) Description 01/18/2025 Travel Social History Tobacco Use Types Packs/Day Years [...] Office Visit [facility] [address] [place] [address] Dung Virk documented as of this encounter Visit Diagnoses Not on filedocumented in this encounter Additional Health Concerns Assessment Noted Time A Body Mass Index follow-up plan has been documented for the patient 08/18/2024 11:22 AM EDT documented as of this encounter Care Teams Barrel Rifler Relationship Specialty Start Date End Date Pcp, No [address] [place] [address] PCP - General Family Medicine 02/18/24 Suze Salcedo, DMD [address] [address] Dentist 06/23/24 Dung Virk Dental Student Dental Beef Farmer 06/23/24 documented as of this encounter
--- OUTSIDE RECORDS SUMMARY | 2025-03-07 10:06 | XMS_ITS | Encounter Summary ---
Author Organization [facility] Address [address] [place] [address] Care Team Providers Care Optical Mechanic Apprentice Name Role Phone Katherine Moore DMD Unavailable [phone] Kwesi Alaniz Unavailable Unavailable Delmer Jimenez DMD Unavailable [phone] Pcp, No Primary Care Provider UnavailBrigitte Morrissey Unavailable Unavailable Suze Salcedo DMD Unavailable [phone] Dung Virk Unavailable Unavailable Encounter Details Date Type Department Care Team (Late st Contact Info) Description 02/20/2020 Abstract [facility] [address] [place] [phone] Dental, Provider, DDS [address] [place], [place] [id number] Social History Tobacco Use Types Packs/Day Years [...] Office Visit [facility] [address] [place] [address] Dung Virk documented as of this encounter Visit Diagnoses Not on filedocumented in this encounter Care Teams Optical Mechanic Apprentice Relationship Specialty Start Date End Date Pcp, No [address] [place] [address] PCP - General Family Medicine 02/18/24 Katherine Moore DMD [address] [place] [address] Dentist Dental Ramp And Cargo Supervisor 11/08/20 Kwesi Alaniz [facility] Dental Student Dental Ramp And Cargo Supervisor 11/08/20 09/11/22 Delmer Jimenez, DMD [address] [place] [address] Dentist 02/04/22 06/22/24 Brigitte Albarran Dental Student Dental Ramp And Cargo Supervisor 06/23/24 06/23/24 Suze Salcedo, DMD [address] [place] [address] Dentist 06/23/24 Dung Virk Dental Student Dental Ramp And Cargo Supervisor 06/23/24 documented as of this encounter
--- NOTE | 2025-03-07 10:08 | XR_ITS ---
FINAL REPORT CLINICAL HISTORY: right elbow pain. patient states that his right elbow has been filled with fluid for about 2 months and that the doctor has drained his elbow. no surgery and no known injury. FINDINGS: AP, oblique, and lateral views of the right elbow were obtained. There is no prior exam for comparison. There is no acute fracture or dislocation. Joint space is preserved. There is no joint effusion or other soft tissue abnormality. IMPRESSION: No acute osseous abnormality of the right elbow. Reviewed, Interpreted and Dictated by Alyson Mcconnell MD Transcribed by Yenni Mosquera Authenticated and [facility]
== END 2025-03-07 23:59 | disposition home or self-care (01) ==
LOC: RAD 10:04
PROVIDERS: PCP Internal Medicine Adolescent Medicine; Visit Provider Physician Assistant
DX: M25.521 Pain in right elbow (principal)
CPT/HCPCS: 73080